=== PATIENT | male | born 1980 | race Caucasian/White ===

== ENCOUNTER 2019-03-01 14:19 | Emergency (ER) | payer OTHER, MEDICAID | END 2019-03-01 15:22 | disposition home or self-care (01) | LOC: FTE 14:19 | DX: L73.9 Follicular disorder, unspecified (principal) | CPT/HCPCS: 99283; Z7502 ==

== ENCOUNTER 2019-03-20 19:07 | Emergency (ER) | payer OTHER ==
[2019-03-20] MEDS: DIPHTH/TET/ACEL PERTUSS (ADULT) 0.5 ML VIAL IM* (20:51)
[2019-03-20] MEDS: LIDOCAINE 1% (MPF) 5 ML VIAL INFIL (21:49)
== END 2019-03-20 22:34 | disposition home or self-care (01) ==
LOC: FTE 19:07
DX: S61.011A Laceration without foreign body of right thumb without damage to nail, initial encounter (principal); J45.909 Unspecified asthma, uncomplicated; R03.0 Elevated blood-pressure reading, without diagnosis of hypertension; W26.8XXA Contact with other sharp object(s), not elsewhere classified, initial encounter; Y92.9 Unspecified place or not applicable; Z23 Encounter for immunization
CPT/HCPCS: 12001; 73140; 90471; 90715; 99283-25

== ENCOUNTER 2019-07-04 20:34 | Emergency (ER) | payer OTHER ==
[2019-07-04] MEDS: CLINDAMYCIN 300 MG CAP PO (22:23)
[2019-07-04] MEDS: IBUPROFEN 600 MG TAB PO (22:23)
== END 2019-07-04 23:04 | disposition home or self-care (01) ==
LOC: FTE 20:34
DX: L03.012 Cellulitis of left finger (principal); J45.909 Unspecified asthma, uncomplicated; F17.210 Nicotine dependence, cigarettes, uncomplicated
CPT/HCPCS: 99283; Z7502